=== PATIENT | female | born 2000 | race African-American/Black ===

== ENCOUNTER 2018-06-27 02:05 | Emergency (ER) | payer OTHER ==
[~2018-06-27] VITALS: Ht 167.6 cm; Wt 68.0 kg
[2018-06-27 02:05] VITALS: BP 107/66
--- NOTE | 2018-06-27 02:05 | NUR ---
ED Nurse Note: Pt was BIBA from home. C/o 'pt had Trazedone 9# pills' accoding to EMS report. No [employer] at bed side at this time. Pt is awake, drawsy. Pt is able to comunicated. Vital signs stable at this time, waitng for orders.
--- NOTE | 2018-06-27 02:08 | NUR ---
ED Nurse Note: Blood sample collected and sent to Lab.
[2018-06-27] MEDS ORDERED: TRAZODONE HCL150 MG ORAL (02:10)
--- NOTE | 2018-06-27 02:20 | NUR ---
ED Nurse Note: Urine sample collected and sent to Lab.
--- NOTE | 2018-06-27 02:33 | NUR ---
ED Nurse Note: Pt vomited once, Meds given as ordered.
[2018-06-27 02:43] LABS: BASOPHILS % (AUTO) 1.5 % (0.0-2.0); EOSINOPHILS % (AUTO) 1.1 % (0.0-3.0); HEMATOCRIT 39.3 % (37.0-47.0); HEMOGLOBIN 13.2 G/DL (12.0-16.0); MEAN CORPUSCULAR VOLUME 85 FL (80-99); MONOCYTES % (AUTO) 10.7 % (1.0-10.0); NEUTROPHILS % (AUTO) 69.7 % (45.0-75.0); PLATELET COUNT 255 K/UL (150-450); RED BLOOD COUNT 4.61 M/UL (4.20-5.40); WHITE BLOOD COUNT 3.5 K/UL (4.8-10.8)
[2018-06-27 02:47] LABS: ANION GAP 12 mmol/L (5-15); BLOOD UREA NITROGEN 18 mg/dL (7-18); CALCIUM 9.2 MG/DL (8.5-10.1); CARBON DIOXIDE 24 MMOL/L (21-32); CHLORIDE 104 MMOL/L (98-107); CREATININE 0.8 MG/DL (0.55-1.30); POTASSIUM 3.7 MMOL/L (3.5-5.1); SODIUM 139 MMOL/L (136-145)
[2018-06-27 02:51] LABS: ALANINE AMINOTRANSFERASE 21 U/L (12-78); ALBUMIN 3.6 G/DL (3.4-5.0); ALBUMIN/GLOBULIN RATIO 1.1 (1.0-2.7); ALKALINE PHOSPHATASE 53 U/L (46-116); ASPARTATE AMINO TRANSFERASE 19 U/L (15-37); BILIRUBIN,TOTAL 0.5 MG/DL (0.2-1.0)
[2018-06-27 03:31] LABS: APPEARANCE,URINE CLEAR; BILIRUBIN, URINE NEGATIVE (NEGATIVE); COLOR,URINE YELLOW; GLUCOSE, URINE (UA) NEGATIVE (NEGATIVE); KETONES,URINE 4+ (NEGATIVE); LEUKOCYTE ESTERASE ,URINE 1+ (NEGATIVE); NITRITE,URINE NEGATIVE (NEGATIVE); PH,URINE 5 (4.5-8.0); PROTEIN,URINE 2+ (NEGATIVE); UROBILINOGEN,URINE 1 MG/DL (0.0-1.0)
--- NOTE | 2018-06-27 04:40 | NUR ---
ED Nurse Note: Waiting for Psychiatric evaluation in AM.
--- NOTE | 2018-06-27 05:18 | NUR ---
ED Nurse Note: pt left contact number in case the patient will be discharge any pt's update [phone], Aracelis Rapp
--- NOTE | 2018-06-27 05:40 | Emergency Room Report ---
History of Present Illness General Chief Complaint: Overdose Source: Patient, Family Member, EMS Present Illness HPI 17-year-old female presents ED for evaluation. Brought in by EMS for possible overdose. Patient told EMS that she took 4 pills of trazodone last night to sleep. Unknown what time the pills were taken. States she took the pills "to ". Denies hearing voices. Notes history of depression. Denies alcohol or drug use. Denies fevers or chills. Notes nausea, denies vomiting. Denies abdominal pain. No other aggravating relieving factors. Denies any other associated symptoms Allergies: Coded Allergies: No Known Allergies (Unverified , 06/27/18) Patient History Past Medical History: psych hx Past Surgical History: none Pertinent Family History: none Social History: Denies: smoking, alcohol use, drug use Last Menstrual Period: may Now: No Immunizations: UTD Reviewed Nursing Documentation: PMH: Agreed; PSxH: Agreed Nursing Documentation-PMH History Of Psychiatric Problem: Yes - depression Review of Systems All Other Systems: negative except mentioned in HPI Physical Exam Vital Signs Date Time Temp Pulse Resp B/P (MAP) Pulse Ox O2 Delivery O2 Flow Rate FiO2 06/27/18 02:02 98.2 70 16 108/68 96 Room Air Sp02 EP Interpretation: reviewed, normal General Appearance: lethargic Head: normocephalic Eyes: bilateral eye normal inspection, bilateral eye PERRL ENT: normal ENT inspection Neck: normal inspection Respiratory: chest non-tender, lungs clear, normal breath sounds, speaking full sentences Cardiovascular #1: regular rate, rhythm, no edema Gastrointestinal: normal bowel sounds, non tender, soft, non-distended, no guarding, no rebound Rectal: deferred Genitourinary: no CVA tenderness Musculoskeletal: normal inspection Neurologic: other - lethargic Psychiatric: other - lethargic Skin: normal inspection Lymphatic: normal inspection Medical Decision Making Diagnostic Impression: Primary Impression: Drug overdose Qualified Codes: T50.902A - Poisoning by unspecified drugs, medicaments and biological substances, intentional self-harm, initial encounter ER Course Hospital Course 17-year-old female presents after taking multiple trazodone pills Differential diagnoses include: Major depressive disorder, unspecified psychosis , EtOH abuse, drug abuse Clinical course Patient placed on stretcher. On one to one observation. After initial history and physical I ordered labs, U. tox, IV fluids, EKG Labs-electrolytes normal, aspirin/Tylenol levels normal, EtOH level normal, U. tox +THC EKGnormal sinus rhythm no acute ischemic changes interpreted by me Discussed case with poison control. Stated that trazodone is typically quick release and effects of medication should last about 4 hours Patient is medically cleared and pending psychiatric evaluation. i. I feel this is a highly complex case requiring extensive working including EKG/Rhythm strip, Xray/CT/US, Blood/urine lab work, repeat exams while in ED, and administration of strong opiates/narcotics for pain control, admission to hospital or close patient follow up. Labs Test 06/27/18 02:10 06/27/18 02:25 White Blood Count 3.5 K/UL (4.8-10.8) Red Blood Count 4.61 M/UL (4.20-5.40) Hemoglobin 13.2 G/DL (12.0-16.0) Hematocrit 39.3 % (37.0-47.0) Mean Corpuscular Volume 85 FL (80-99) Mean Corpuscular Hemoglobin 28.6 PG (27.0-31.0) Mean Corpuscular Hemoglobin Concent 33.6 G/DL (32.0-36.0) Red Cell Distribution Width 12.0 % (11.6-14.8) Platelet Count 255 K/UL (150-450) Mean Platelet Volume 5.7 FL (6.5-10.1) Neutrophils (%) (Auto) 69.7 % (45.0-75.0) Lymphocytes (%) (Auto) 17.0 % (20.0-45.0) Monocytes (%) (Auto) 10.7 % (1.0-10.0) Eosinophils (%) (Auto) 1.1 % (0.0-3.0) Basophils (%) (Auto) 1.5 % (0.0-2.0) Sodium Level 139 MMOL/L (136-145) Potassium Level 3.7 MMOL/L (3.5-5.1) Chloride Level 104 MMOL/L (98-107) Carbon Dioxide Level 24 MMOL/L (21-32) Anion Gap 12 mmol/L (5-15) Blood Urea Nitrogen 18 mg/dL (7-18) Creatinine 0.8 MG/DL (0.55-1.30) Estimat Glomerular Filtration Rate > 60 mL/min (>60) Glucose Level 96 MG/DL (74-106) Calcium Level 9.2 MG/DL (8.5-10.1) Total Bilirubin 0.5 MG/DL (0.2-1.0) Aspartate Amino Transf (AST/SGOT) 19 U/L (15-37) Alanine Aminotransferase (ALT/SGPT) 21 U/L (12-78) Alkaline Phosphatase 53 U/L (46-116) Total Protein 6.9 G/DL (6.4-8.2) Albumin 3.6 G/DL (3.4-5.0) Globulin 3.3 g/dL Albumin/Globulin Ratio 1.1 (1.0-2.7) Salicylates Level 1.0 ug/mL (2.8-20) Acetaminophen Level < 2 MCG/ML (10-30) Serum Alcohol < 3 mg/dL Urine Color Yellow Urine Appearance Clear Urine pH 5 (4.5-8.0) Urine Specific Freeman 1.025 (1.005-1.035) Urine Protein 2+ (NEGATIVE) Urine Glucose (UA) Negative (NEGATIVE) Urine Ketones 4+ (NEGATIVE) Urine Blood 1+ (NEGATIVE) Urine Nitrite Negative (NEGATIVE) Urine Bilirubin Negative (NEGATIVE) Urine Urobilinogen 1 MG/DL (0.0-1.0) Urine Leukocyte Esterase 1+ (NEGATIVE) Urine RBC 0-2 /HPF (0 - 2) Urine WBC 2-4 /HPF (0 - 2) Urine Squamous Epithelial Cells Few /LPF (NONE/OCC) Urine Bacteria None /HPF (NONE) Urine HCG, Qualitative Negative (NEGATIVE) Urine Opiates Screen Negative (NEGATIVE) Urine Barbiturates Screen Negative (NEGATIVE) Phencyclidine (PCP) Screen Negative (NEGATIVE) Urine Amphetamines Screen Negative (NEGATIVE) Urine Benzodiazepines Screen Negative (NEGATIVE) Urine Cocaine Screen Negative (NEGATIVE) Urine Marijuana (THC) Screen Positive (NEGATIVE) EKG Diagnostic Results Rate: normal Rhythm: NSR ST Segments: no acute changes ASA given to the pt in ED: No Rhythm Strip Diag. Results EP Interpretation: yes Rhythm: NSR, no PVC's, no ectopy Last Vital Signs Date Time Temp Pulse Resp B/P (MAP) Pulse Ox O2 Delivery O2 Flow Rate FiO2 06/27/18 02:05 98.1 73 16 107/66 96 Room Air Status: improved Disposition: XFER TO PSYCH HOSP/UNIT Condition: Serious Referrals: NOT CHOSEN IPA/,REFERRING (PCP) Steve Estrada MD Jun 27, 2018 05:40
--- NOTE | 2018-06-27 05:50 | NUR ---
ED Nurse Note: MD asked pt again and pt states that "she took 4 pills of Trazedonefor her to ".
[2018-06-27 05:59] VITALS: BP 91/53
--- NOTE | 2018-06-27 07:15 | NUR ---
ED Nurse Note: All personal belonging given to pt's family/Uncle at bedside.
--- NOTE | 2018-06-27 07:15 | NUR ---
ED Nurse Note: pt with even reg resp, sleeping. sitter at bs for close observation. family member also with pt.
--- NOTE | 2018-06-27 07:17 | NUR ---
ED Nurse Note: Removed ear rings and given it to pt's family/Sonam, .
--- NOTE | 2018-06-27 07:18 | NUR ---
HAND-OFF: Report given to Dian/FRANCISCO for continue care. Pt is A/O X 4. VSS. Alex for Psychiatric Eval.
--- NOTE | 2018-06-27 10:03 | NUR ---
ED Nurse Note: pt with insurance info updated by er registration. pt states she doesnt want to hurt herself now. resp even and regular pt aware breakfast at her bedside to eat. sitter remains present
--- NOTE | 2018-06-27 10:06 | NUR ---
ED Nurse Note: family member at bs. made aware to not leave his personal belongings in room with pt when he leaves the room to maintain pt safety. initially family upset with rn but then calms when explanations given as to why.
--- NOTE | 2018-06-27 11:00 | NUR ---
ED Nurse Note: pt eval by psych team. pt to be placed on 5150 hold for inpt pysch treatment. pt remains safe and cooperative with care.
--- NOTE | 2018-06-27 11:23 | NUR ---
ED Nurse Note: martina( family) number [phone]
--- NOTE | 2018-06-27 11:39 | NUR ---
ED Nurse Note:pt amb steady gait to brp
--- NOTE | 2018-06-27 11:40 | NUR ---
ED Nurse Note: report to wagner rascon" [facility] care aware of pt status and 5150 hold. family aware pt pending pysch admit. pt remains safe in care
[2018-06-27 14:00] VITALS: BP 128/59
--- NOTE | 2018-06-27 14:00 | NUR ---
ED Nurse Note: Patient transferred to [facility]. gave report to FRANCISCO Noe
--- NOTE | 2018-06-28 21:28 | Cardiology Report ---
APPROVED REPORT EKG Measurement Heart [id number] TN [id number] Normal sinus rhythm Possible Left atrial enlargement Borderline ECG
== END 2018-06-27 14:00 ==
LOC: EDBD 02:05 → EMR 02:50
DX: T43.212A Poisoning by selective serotonin and norepinephrine reuptake inhibitors, intentional self-harm, initial encounter (principal); Y92.9 Unspecified place or not applicable; F32.9 Major depressive disorder, single episode, unspecified
CPT/HCPCS: 36415; 80053; 80307; 81003; 81025; 85025; 93005; 96361; 96374; 96375; 99284; G0480; J2405; S0028; 80329